=== PATIENT | female | born 1985 | race Caucasian/White ===

== ENCOUNTER 2021-01-23 19:41 | Emergency (ER) | payer OTHER ==
[2021-01-23] MEDS ORDERED: Sodium Chloride 0.9% 1,000 ML IV ONE (20:12)
[2021-01-23] MEDS ORDERED: Sodium Chloride 0.9% 10 ML Syringe FLUSH PRN (20:12)
[2021-01-23] MEDS ORDERED: Ondansetron 4 MG/2 ML SDV IVPUSH ONE (20:12)
--- NOTE | 2021-01-23 20:40 | EDM.PDOC ---
ED HPI GENERAL MEDICAL PROBLEM - General Chief Complaint: Gastrointestinal Problem Stated Complaint: FLU DEHYDRATED 27 WEEKS PREG Time Seen by Provider: 01/23/21 19:50 Source of Information: Reports: Patient History Limitations: Reports: No Limitations - History of Present Illness INITIAL COMMENTS - FREE TEXT/NARRATIVE: 35-year-old female presents the emergency department today complaints of nausea and vomiting and diarrhea. The patient is 27 weeks and has had a healthy up until today. She states that her son recently had the same symptoms that lasted approximately 24 hours. She states she woke this morning and felt nauseated and then has vomited numerous times throughout the day. She states she is also had several diarrhea stools. She denies any fever however she states she has had chills intermittently. She had initially taken Zofran this morning which did not seem to help. She then took a promethazine this afternoon which she states helped some however she has since vomited. She states she feels like she is becoming dehydrated and was requesting to have IV fluids. - Related Data Allergies Allergy/AdvReac Type Severity Reaction Status Date / Time Sulfa (Sulfonamide Allergy Anaphylactic Verified 01/23/21 19:52 Antibiotics) Shock Home Meds: Home Meds Aspirin [Aspirin EC] 81 mg PO DAILY 01/23/21 [History] Cholecalciferol (Vitamin D3) [Vitamin D3] 0 unit PO DAILY 01/23/21 [History] Montelukast [Singulair] 10 mg PO DAILY 01/23/21 [History] Ondansetron [Zofran] 4 mg PO Q6H PRN 01/23/21 [History] No122/Iron/Folic Acid [ Multi Tablet] 1 tab PO DAILY 01/23/21 [History] Promethazine [Phenergan] 25 mg PO Q6H PRN 01/23/21 [History] Past Medical History Other Cardiovascular History: THFR factor 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 MCKAY History: Reports: 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, Other COBBLER MCKAY History: c section 2019 Psychiatric History: Reports: Anxiety, Depression Endocrine/Metabolic History: Reports: Obesity/BMI 30+ - Infectious Disease History Infectious Disease History: Reports: Chicken Pox, Influenza, Novel Coronavirus - Past Surgical History HEENT Surgical History: Reports: Adenoidectomy, Tonsillectomy Other HEENT Surgeries/Procedures: nose surgery 2010 Social & Family History - Tobacco Use Tobacco Use Status *Q: Never Tobacco User Second Hand Smoke Exposure: No - Caffeine Use Caffeine Use: Reports: Coffee, Tea - Recreational Drug Use Recreational Drug Use: No ED ROS GENERAL - Review of Systems Review Of Systems: Comprehensive ROS is negative, except as noted in HPI. ED EXAM, GI/ABD - Physical Exam Exam: See Below Exam Limited By: No Limitations General Appearance: Alert, WD/WN, No Apparent Distress Ears: Normal External Exam, Hearing Grossly Normal Nose: Normal Inspection Throat/Mouth: Normal Inspection, Normal Lips, Normal Voice, No Airway Compromise Head: Atraumatic, Normocephalic Neck: Normal Inspection, Supple, Non-Tender, Full Range of Motion Respiratory/Chest: No Respiratory Distress, Lungs Clear, Normal Breath Sounds, No Accessory Muscle Use Cardiovascular: Normal Peripheral Pulses, Regular Rate, Rhythm, No Edema, No Murmur GI/Abdominal Exam: Normal Bowel Sounds, Non-Tender (Female) Exam: Deferred Rectal (Female) Exam: Deferred Back Exam: Normal Inspection, Full Range of Motion Extremities: Normal Inspection, Normal Range of Motion, Non-Tender, No Pedal Edema, Normal Capillary Refill Neurological: Alert, Oriented, Normal Cognition Psychiatric: Normal Affect, Normal Mood Skin Exam: Warm, Dry, Intact, Normal Color, No Rash Lymphatic: No Adenopathy Course - Vital Signs Text/Narrative:: 35-year-old female who is 27 weeks presents to the emergency department with complaints of nausea, vomiting and diarrhea. She states this started this morning just shortly after she woke up. She states that her son recently had similar symptoms that lasted approximately 24 hours. She has vomited between 10 and 12 times throughout the day and states that it is bile colored. She is also having several diarrheal stools today. She has tried to take Zofran and promethazine throughout the day however this is not helped. She does however state that she is still having a significant amount of movement. She is requesting to have IV fluids as she feels like she is becoming dehydrated. I have ordered her to receive a liter of normal saline, Zofran for the nausea and I have ordered labs on this patient. Last Recorded V/S: Last Vital Signs Temp 97.9 F 01/23/21 19:48 Pulse 98 01/23/21 19:48 Resp 12 01/23/21 19:48 BP 106/65 01/23/21 19:48 Pulse Ox 97 01/23/21 19:48 - Orders/Labs/Meds Orders: Active Orders 24 hr Category Date Time Status Potassium Chloride [Klor-Con M20] Med 01/23/21 21:41 Once 40 meq PO ONETIME ONE Sodium Chloride 0.9% [Saline Flush] Med 01/23/21 20:12 Active 10 ml FLUSH ASDIRECTED PRN Saline Lock Insert [OM.PC] Stat Oth 01/23/21 20:12 Ordered Medication Orders Sodium Chloride (Sodium Chloride 0.9% 10 Ml Syringe) 10 ml FLUSH ASDIRECTED PRN PRN Reason: Keep Vein Open Last Admin: 01/23/21 20:35 Dose: 10 ml Documented by: YOGESH Labs: Laboratory Tests 01/23/21 01/23/21 Range/Units 20:24 20:24 WBC 12.75 H (3.98-10.04) K/mm3 RBC 4.09 (3.98-5.22) M/mm3 Hgb 12.4 (11.2-15.7) gm/dl Hct 37.5 (34.1-44.9) % MCV 91.7 (79.4-94.8) fl MCH 30.3 (25.6-32.2) pg MCHC 33.1 (32.2-35.5) g/dl RDW Std Deviation 43.0 (36.4-46.3) fL Plt Count 267 (182-369) K/mm3 MPV 11.3 (9.4-12.3) fl Neut % (Auto) 87.2 H (34.0-71.1) % Lymph % (Auto) 6.4 L (19.3-51.7) % Taliaferro % (Auto) 5.6 (4.7-12.5) % Eos % (Auto) 0 L (0.7-5.8) Baso % (Auto) 0.2 (0.1-1.2) % Neut # (Auto) 11.12 H (1.56-6.13) K/mm3 Lymph # (Auto) 0.82 L (1.18-3.74) K/mm3 Taliaferro # (Auto) 0.71 H (0.24-0.36) K/mm3 Eos # (Auto) 0.00 L (0.04-0.36) K/mm3 Baso # (Auto) 0.02 (0.01-0.08) K/mm3 Manual Slide Review Abnormal smear Sodium 138 (136-145) mEq/L Potassium 3.2 L (3.5-5.1) mEq/L Chloride 103 (98-107) mEq/L Carbon Dioxide 20 L (21-32) mEq/L Anion Gap 18.2 H (5-15) BUN 7 (7-18) mg/dL Creatinine 0.7 (0.55-1.02) mg/dL Est Cr Clr Drug Dosing 105.01 mL/min Estimated GFR (MDRD) > 60 (>60) mL/min BUN/Creatinine Ratio 10.0 L (14-18) Glucose 97 (74-106) mg/dL Calcium 8.4 L (8.5-10.1) mg/dL Magnesium 2.2 (1.8-2.4) mg/dl Total Bilirubin 0.5 (0.2-1.0) mg/dL AST 18 (15-37) U/L ALT 14 (14-59) U/L Alkaline Phosphatase 114 (46-116) U/L Total Protein 6.7 (6.4-8.2) g/dl Albumin 2.4 L (3.4-5.0) g/dl Globulin 4.3 gm/dL Albumin/Globulin Ratio 0.6 L (1-2) Meds: Medications Generic Name Dose Route Start Last Admin Trade Name Natty PRN Reason Stop Dose Admin Sodium Chloride 10 ml 01/23/21 20:12 01/23/21 20:35 Sodium Chloride 0.9% 10 Ml Syringe FLUSH 10 ml ASDIRECTED PRN Administration Keep Vein Open Discontinued Medications Generic Name Dose Route Start Last Admin Trade Name Frered PRN Reason Stop Dose Admin Sodium Chloride 1,000 mls @ 999 mls/hr 01/23/21 20:12 01/23/21 20:26 Normal Saline IV 01/23/21 21:12 999 mls/hr ONETIME ONE Administration Ondansetron HCl 4 mg 01/23/21 20:12 01/23/21 20:26 Ondansetron 4 Mg/2 Ml Sdv IVPUSH 01/23/21 20:13 4 mg ONETIME ONE Administration - Re-Assessments/Exams Free Text/Narrative Re-Assessment/Exam: 01/23/21 21:41 Patient reports feeling much better after receiving a liter of IV fluids and Zofran. She states she is no longer nauseated. 01/23/21 21:42 Hematology reveals a WBC of 12.75, hemoglobin 12.4, hematocrit 37.5, chemistry reveals a sodium of 138, potassium 3.2, carbon dioxide 20, anion gap 18.2, BUN 7, creatinine 0.7, glucose 97, calcium 8.4, magnesium 2.2 I have ordered for the patient to receive 40 mEq of potassium p.o. x1 dose. She will then be discharged to home. Recommend that she take work off tomorrow to get some extra rest. Departure - Departure Time of Disposition: 21:43 Disposition: Home, Self-Care 01 Condition: Good Clinical Impression: Vomiting, Diarrhea - Discharge Information Instructions: Nausea and Vomiting, Adult, [id number] Referrals: Katy Abdi MD [Primary Care Provider] - Forms: ED Department Discharge Additional Instructions: You were seen in the emergency department today with complaints of nausea, vomiting, and diarrhea that started this morning. Labs were completed and you were given a liter of IV fluid and IV Zofran. Your labs were essentially unremarkable however did they did show you were slightly dehydrated and your potassium level was low. This is likely due to the vomiting and diarrhea. You were given a dose of potassium oral. Recommend that you go home and rest. Drink plenty of fluids such as Gatorade which has electrolytes and potassium in it. Recommend clear liquids for the next 24 hours may advance to a bland diet after that. Follow-up with your COBBLER MCKAY as scheduled. Should your condition worsen or change, do not hesitate returning to the emergency department. Sepsis Event Note (ED) - Evaluation Sepsis Screening Result: No Definite Risk - Focused Exam Vital Signs: Vital Signs Temp Pulse Resp BP Pulse Ox 01/23/21 19:48 97.9 F 98 12 106/65 97 - My Orders Last 24 Hours: My Active Orders 01/23/21 20:12 Sodium Chloride 0.9% [Saline Flush] 10 ml FLUSH ASDIRECTED PRN Saline Lock Insert [OM.PC] Stat 01/23/21 21:41 Potassium Chloride [Klor-Con M20] 40 meq PO ONETIME ONE - Assessment/Plan Last 24 Hours: My Active Orders 01/23/21 20:12 Sodium Chloride 0.9% [Saline Flush] 10 ml FLUSH ASDIRECTED PRN Saline Lock Insert [OM.PC] Stat 01/23/21 21:41 Potassium Chloride [Klor-Con M20] 40 meq PO ONETIME ONE
[2021-01-23] MEDS ORDERED: Potassium Chloride 20 MEQ Tab.ER PO ONE (21:41)
== END 2021-01-23 21:51 | disposition home or self-care (01) ==
LOC: JD.ED 19:41
DX: O21.2 Late vomiting of pregnancy (principal); O99.891 Other specified diseases and conditions complicating pregnancy; R19.7 Diarrhea, unspecified; O09.522 Supervision of elderly multigravida, second trimester; O99.212 Obesity complicating pregnancy, second trimester; E66.9 Obesity, unspecified; Z88.2 Allergy status to sulfonamides; Z3A.27 27 weeks gestation of pregnancy; Z79.82 Long term (current) use of aspirin
CPT/HCPCS: 36415; 80053; 83735; 85025; 96374; 99284; A9270; J2405; J7030

== ENCOUNTER 2021-04-13 08:50 | Inpatient (IN) | payer OTHER ==
[2021-04-13] MEDS ORDERED: Oxytocin/Lactated Ringers 10 UNIT/1,000 ML BAG IV SCH (09:45)
[2021-04-13] MEDS ORDERED: Citric Acid/Sodium Citrate Solution 30 ML Cup PO ONE (09:45)
[2021-04-13] MEDS ORDERED: Metoclopramide 10 MG/2 ML SDV IVPUSH ONE (09:45)
[2021-04-13] MEDS ORDERED: Sodium Chloride 0.9% 10 ML Syringe FLUSH PRN (09:45)
[2021-04-13] MEDS ORDERED: ceFAZolin 2 GM in Premix Bag 1 BAG IV ONE (09:45)
[2021-04-13] MEDS ORDERED: ceFAZolin 1 GM Vial ONE (09:52)
[2021-04-13] MEDS ORDERED: Ondansetron 4 MG/2 ML SDV ONE (09:52)
[2021-04-13] MEDS ORDERED: Oxytocin 10 Units/1 ML SDV ONE ×2 (09:52→11:24)
[2021-04-13] MEDS ORDERED: Ketorolac 30 MG/ML SDV ONE (09:52)
[2021-04-13] MEDS ORDERED: Morphine PF 10 MG/10 ML SDV ONE (09:53)
--- NOTE | 2021-04-13 09:57 | PCM.LDHP ---
L&D History of Present Illness - General Date of Service: 04/13/21 Admit Problem/Dx: Patient Status Order with Admit Dx/Problem 04/13/21 09:00 Patient Status [ADT] Routine 04/13/21 09:45 Patient Status [ADT] Routine Admission Diagnosis/Problem Admission Diagnosis/Problem Source of Information: Patient History Limitations: Reports: No Limitations - History of Present Illness Introduction:: Patient is a 36 y/o at 38 3/7 wks who presents to L&D for concerns of decreased FM. Had decreased FM on Sunday at time of her NST. Was reactive. Since then continues to have less FM. Otherwise continues to have worsening discomfort in her left leg. Edema more notable. 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: 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, , Spontaneous : 3 Para: 1 LMP (Approximate): Psychiatric History: Reports: Anxiety, Depression Endocrine/Metabolic History: Reports: Obesity/BMI 30+ - Infectious Disease History Infectious Disease History: Reports: Chicken Pox, Influenza, Novel Coronavirus - Past Surgical History HEENT Surgical History: Reports: Adenoidectomy, Tonsillectomy Other HEENT Surgeries/Procedures: Nasal surgery Female Surgical History: Reports: Section, Other (See Below) (Diagnostic laparoscopy) Social & Family History - Tobacco Use Tobacco Use Status *Q: Never Tobacco User - Caffeine Use Caffeine Use: Reports: Coffee, Tea - Alcohol Use Alcohol Use History: No - Recreational Drug Use Recreational Drug Use: No H&P Review of Systems - Review of Systems: Review Of Systems: See Below General: Reports: No Symptoms Pulmonary: Reports: No Symptoms Cardiovascular: Reports: No Symptoms Gastrointestinal: Reports: No Symptoms Genitourinary: Reports: No Symptoms Musculoskeletal: Reports: Leg Pain Psychiatric: Reports: No Symptoms Neurological: Reports: No Symptoms L&D Exam - Exam Exam: See Below - Vital Signs Weight: 103.419 kg - OB Specific Contraction Intensity: Irritability Movement: Active Heart Tones: Present Heart Tones per Min: 135 Heart Rate (FHR) Variability: Moderate (6-25 bmp) - Exam General: Alert, Oriented, Cooperative Lungs: Clear to Auscultation, Normal Respiratory Effort Cardiovascular: Regular Rate, Regular Rhythm GI/Abdominal Exam: Soft, Non-Tender Extremities: Other (Left leg markedly edematous from foot up through thigh. Slightly warm today. Moderately tender ) - Problem List (1) 38 weeks gestation of SNOMED Code(s): 01705584 ICD Code: Z3A.38 - 38 WEEKS GESTATION OF Status: Acute Current Visit: Yes (2) History of delivery SNOMED Code(s): 766854865 ICD Code: Z98.891 - HISTORY OF UTERINE SCAR FROM PREVIOUS SURGERY Status: Acute Current Visit: Yes (3) Edema leg SNOMED Code(s): 449510288 ICD Code: R60.0 - LOCALIZED EDEMA Status: Acute Current Visit: Yes (4) Decreased movement SNOMED Code(s): 707733639 ICD Code: O36.8190 - DECREASED MOVEMENTS, UNSP TRIMESTER, UNSP Status: Acute Current Visit: Yes Qualifiers: Fetus number: single or unspecified fetus Trimester: third trimester Qualified Code(s): O36.8130 - Decreased movements, third trimester, not applicable or unspecified (5) Gestational diabetes SNOMED Code(s): 30426863 ICD Code: O24.419 - GESTATIONAL DIABETES MELLITUS IN , UNSP CONTROL Status: Acute Current Visit: Yes Qualifiers: Gestational diabetes mellitus control: insulin-controlled Trimester: third trimester Qualified Code(s): O24.414 - Gestational diabetes mellitus in , insulin controlled Problem List Initiated/Reviewed/Updated: Yes Orders Last 24hrs: Active Orders 24 hr Category Date Time Status Patient Status [ADT] Routine ADT 04/13/21 09:00 Active Patient Status [ADT] Routine ADT 04/13/21 09:45 Ordered Communication Order [RC] ROUTINE Care 04/13/21 09:45 Ordered Heart Tones [RC] PER UNIT ROUTINE Care 04/13/21 09:45 Ordered Non Stress Test [RC] PER UNIT ROUTINE Care 04/13/21 09:00 Active Peripheral IV Care [RC] . DIRECTED Care 04/13/21 09:46 Ordered Procedure Site Prep Instruct [RC] ASDIRECTED Care 04/13/21 09:45 Ordered Verify Patient Consent Obtain [RC] PER UNIT ROUTINE Care 04/13/21 09:45 Ordered Vital Signs [RC] PER UNIT ROUTINE Care 04/13/21 09:00 Active Vital Signs [RC] PFP Care 04/13/21 09:45 Ordered CBC WITH AUTO DIFF [HEME] Stat Lab 04/13/21 09:45 Ordered CORONAVIRUS COVID-19 TRICIA [MOLEC] Stat Lab 04/13/21 09:47 Ordered RAPID PLASMA REAGIN,RPR [CHEM] Routine Lab 04/13/21 09:45 Ordered TYPE AND SCREEN [BBK] Routine Lab 04/13/21 09:45 Ordered Citric Acid/Sodium Citrate [Bicitra Solution] Med 04/13/21 09:45 Once 30 ml PO ONETIME ONE Lactated Ringers @ 125 MLS/HR(1000ml) Med 04/13/21 09:45 Ordered Lactated Ringers [Ringers, Lactated] 1,000 ml IV ASDIRECTED Metoclopramide [Reglan] Med 04/13/21 09:45 Once 10 mg IVPUSH ONETIME ONE Oxytocin/Lactated Ringers [Pitocin in LR 10 Units/1,000 Med 04/13/21 09:45 Ordered ML] 10 unit in 1,000 ml IV ASDIRECTED Sodium Chloride 0.9% [Saline Flush] Med 04/13/21 09:45 Ordered 10 ml FLUSH ASDIRECTED PRN ceFAZolin [Ancef 2 GM/50 ML] 2 gm Med 04/13/21 09:45 Ordered Premix Bag 1 bag IV ONETIME Peripheral IV Insertion Adult [OM.PC] Routine Oth 04/13/21 09:45 Ordered Schedule Procedure [COMM] Per Unit Routine Oth 04/13/21 09:45 Ordered Resuscitation Status Routine Resus Stat 04/13/21 09:00 Ordered Medication Orders Citric Acid/Sodium Citrate (Citric Acid/Sodium Citrate Solution 30 Ml Cup) 30 ml PO ONETIME ONE Stop: 04/13/21 09:46 Lactated Ringer's (Ringers, Lactated) 1,000 mls @ 125 mls/hr IV ASDIRECTED EDUARDO Cefazolin Sodium/Dextrose 2 gm (/ Premix) 50 mls @ 100 mls/hr IV ONETIME ONE Stop: 04/13/21 10:14 Oxytocin/Lactated Ringer's (Pitocin In Lr 10 Units/1,000 Ml) 10 unit in 1,000 mls @ 100 mls/hr IV ASDIRECTED EDUARDO; Protocol Metoclopramide HCl (Metoclopramide 10 Mg/2 Ml Sdv) 10 mg IVPUSH ONETIME ONE Stop: 04/13/21 09:46 Sodium Chloride (Sodium Chloride 0.9% 10 Ml Syringe) 10 ml FLUSH ASDIRECTED PRN PRN Reason: Keep Vein Open Assessment/Plan Comment:: Patient with persistent concerns of decreased FM over the last several days. While NST appropriate given risk factor of GODMA2 will proceed with delivery. This will be via repeat . Labs ordered. Garrick TINOCO. Peds/anesthesia aware. Lower leg edema. Has had two duplex scans in last 1.5 weeks. Depending upon how looks after delivery may either do another duplex vs MRI/additional imaging to ensure no other deeper pathology.
[2021-04-13] MEDS: Lactated Ringers 1,000 ML IV SCH ×2 (09:59→10:45)
--- NOTE | 2021-04-13 10:17 | PCM.PREANE ---
Preanesthetic Assessment - Procedure Proposed Procedure: - Anesthesia/Transfusion/Family Hx Anesthesia History: Prior Anesthesia Without Reaction Family History of Anesthesia Reaction: No Transfusion History: No Prior Transfusion(s) Intubation History: Unknown - Review of Systems General: No Symptoms Pulmonary: No Symptoms Cardiovascular: No Symptoms Gastrointestinal: Abdominal Pain (uterine contractions) Neurological: Tingling (left middle tip of finger) Other: Reports: Diabetes, Depression, Anxiety - Physical Assessment NPO Status Date: 04/13/21 NPO Status Time: 08:00 Height: 1.68 m Weight: 103.419 kg ASA Class: 2 Mental Status: Alert & Oriented x3 Airway Class: Mallampati = 1 Dentition: Reports: Normal Dentition Thyro-Mental Finger Breadths: 3 Mouth Opening Finger Breadths: 3 ROM/Head Extension: Full Lungs: Clear to Auscultation, Normal Respiratory Effort Cardiovascular: Regular Rate, Regular Rhythm - Allergies Allergies/Adverse Reactions: Allergies Allergy/AdvReac Type Severity Reaction Status Date / Time Sulfa (Sulfonamide Allergy Anaphylactic Verified 04/13/21 09:00 Antibiotics) Shock - Blood Blood Available: Yes Product(s) Available: PRBC - Anesthesia Plan Pre-Op Medication Ordered: Antacids (Bicitra and reglan) - Acknowledgements Anesthesia Type Planned: General Anesthesia Pt an Appropriate Candidate for the Planned Anesthesia: Yes Alternatives and Risks of Anesthesia Discussed w Pt/Guardian: Yes Pt/Guardian Understands and Agrees with Anesthesia Plan: Yes PreAnesthesia Questionnaire Gastrointestinal History: Reports: GERD Genitourinary History: Reports: Pyelonephritis 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, , Spontaneous Other OB/BYN History: history of female infertility Psychiatric History: Reports: Anxiety, Depression Endocrine/Metabolic History: Reports: Diabetes, Gestational, Obesity/BMI 30+ Hematologic History: Reports: Other (See Below) Other Hematologic History: Patient stated that she has been told that she is high risk for blood clots Other Dermatologic History: left leg redness - Infectious Disease History Infectious Disease History: Reports: Chicken Pox, Influenza, Novel Coronavirus - Past Surgical History HEENT Surgical History: Reports: Adenoidectomy, Myringotomy w Tube(s), Oral Surgery, Tonsillectomy Other HEENT Surgeries/Procedures: Nasal surgery; wisdom Female Surgical History: Reports: Section, Other (See Below) (Diagnostic laparoscopy; surgery egg retrivial) - SUBSTANCE USE Tobacco Use Status *Q: Never Tobacco User Second Hand Smoke Exposure: No Days Per Week of Alcohol Use: 0 Number of Drinks Per Day: 0 Total Drinks Per Week: 0 Recreational Drug Use History: No - HOME MEDS Home Medications: Home Meds Aspirin [Aspirin EC] 81 mg PO DAILY 01/23/21 [History] Cholecalciferol (Vitamin D3) [Vitamin D3] 1,000 unit PO DAILY 01/23/21 [History] Montelukast [Singulair] 10 mg PO DAILY 01/23/21 [History] No122/Iron/Folic Acid [ Multi Tablet] 1 tab PO DAILY 01/23/21 [History] cephALEXin [Keflex] 500 mg PO Q6H #20 cap 04/03/21 [Rx] Ferrous Sulfate [Iron] 325 mg PO DAILY 04/13/21 [History] Omeprazole Magnesium [Prilosec Otc] 20 mg PO DAILY 04/13/21 [History] - CURRENT (IN HOUSE) MEDS Current Meds: Current Medications Lactated Ringer's (Ringers, Lactated) 1,000 mls @ 125 mls/hr IV ASDIRECTED EDUARDO Last Admin: 04/13/21 09:59 Dose: 999 mls/hr Documented by: Cefazolin Sodium/Dextrose 2 gm (/ Premix) 50 mls @ 100 mls/hr IV ONETIME ONE Stop: 04/13/21 10:14 Oxytocin/Lactated Ringer's (Pitocin In Lr 10 Units/1,000 Ml) 10 unit in 1,000 mls @ 100 mls/hr IV ASDIRECTED EDUARDO; Protocol Sodium Chloride (Sodium Chloride 0.9% 10 Ml Syringe) 10 ml FLUSH ASDIRECTED PRN PRN Reason: Keep Vein Open Discontinued Medications Cefazolin Sodium (Cefazolin 1 Gm Vial) Confirm Administered Dose 2 gm .ROUTE .STK-MED ONE Stop: 04/13/21 09:53 Citric Acid/Sodium Citrate (Citric Acid/Sodium Citrate Solution 30 Ml Cup) 30 ml PO ONETIME ONE Stop: 04/13/21 09:46 Last Admin: 04/13/21 09:59 Dose: 30 ml Documented by: Ketorolac Tromethamine (Ketorolac 30 Mg/Ml Sdv) Confirm Administered Dose 30 mg .ROUTE .STK-MED ONE Stop: 04/13/21 09:53 Metoclopramide HCl (Metoclopramide 10 Mg/2 Ml Sdv) 10 mg IVPUSH ONETIME ONE Stop: 04/13/21 09:46 Last Admin: 04/13/21 09:59 Dose: 10 mg Documented by: Morphine Sulfate (Morphine Pf 10 Mg/10 Ml Sdv) Confirm Administered Dose 10 mg .ROUTE .STK-MED ONE Stop: 04/13/21 09:54 Ondansetron HCl (Ondansetron 4 Mg/2 Ml Sdv) Confirm Administered Dose 4 mg .ROUTE .STK-MED ONE Stop: 04/13/21 09:53 Oxytocin (Oxytocin 10 Units/1 Ml Sdv) Confirm Administered Dose 10 unit .ROUTE .STK-MED ONE Stop: 04/13/21 09:53
[2021-04-13] MEDS ORDERED: Propofol 200 MG/20 ML SDV ONE (10:46)
[2021-04-13] MEDS ORDERED: Succinylcholine/Sod PF 100 MG/5 ML SYRINGE IV ONE (10:59)
[2021-04-13] MEDS ORDERED: fentaNYL 250 MCG/5 ML SDV ONE (11:15)
[2021-04-13] MEDS ORDERED: Methylergonovine 0.2 MG/1 ML Amp ONE (11:18)
[2021-04-13] MEDS ORDERED: Carboprost Tromethamine 250 MCG/1 ML Amp ONE (11:20)
[2021-04-13] MEDS ORDERED: HYDROmorphone 0.5 MG/0.5 ML Syringe ONE (11:32)
[2021-04-13] MEDS ORDERED: fentaNYL 100 MCG/2 ML SDV ONE (11:37)
--- NOTE | 2021-04-13 11:56 | PCM.OPNOTE ---
- General Post-Op/Procedure Note Date of Surgery/Procedure: 04/13/21 Operative Procedure(s): Repeat Findings: Moderate scar tissue between rectus and fascia. Minimal adhesive disease between bladder and lower uterine segment. Baby Girl in vertex presentation. Weight of 8 lbs 12 oz. APGARS fo 6 & 8. Normal appearance of uterus, fallopian tubes, and ovaries Pre Op Diagnosis: 38 3/7 wks. Persistent decreased FM. GODMA2 Post-Op Diagnosis: Same Anesthesia Technique: General ET Tube Primary Surgeon: Hillary Flynn Secondary Surgeon: Katy Abdi Anesthesia Provider: Camille Adan Reason Manager Transportation Planning Was Necessary: BMI of 36. General anesthetic. Speed/safety of procedure Pathology: Cord blood collected. Placenta discarded Fluid Replacement, Intraop: 2,700 Output, Urine Amount: 50 EBL in mLs: 1,200 Complications: None Condition: Good Free Text/Narrative:: The risks, benefits, indications, potential complications, and alternatives were explained to the patient and informed consent obtained. After induction of anesthesia, the patient was placed in a supine position and then draped and prepped in the usual sterile manner. A Pfannenstiel incision was made and carried down through the subcutaneous tissue to the fascia. Fascial incision was made and extended transversely. The fascia was from the underlying rectus tissue superiorly and inferiorly. The peritoneum was identified and entered. Peritoneal incision was extended longitudinally. The utero-vesical peritoneal reflection was incised transversely and the bladder flap was bluntly freed from the lower uterine segment. A low transverse uterine incision was made sharply with a scalpel and extended bluntly in a cephalocaudad direction. A baby girl was delivered from a vertex presentation with APGARS as above. After the umbilical cord was clamped and cut cord blood was obtained for evaluation. The placenta was removed intact and appeared normal. The uterus was exteriorized and cleared of clots. The uterine outline, tubes and ovaries appeared normal. The uterine incision was closed with running locked sutures of 0 Vicryl. Hemostasis was obtained with a second imbricating layer of 0 Vicryl. Poor uterine tone noted and patient given 0.2 mg of IM Methergine and 250 mcg of IM Hemabate. Tone improved. The uterus was then placed back into the abdomen. The infracolic gutters were cleared of blood clots. The fascia was then reapproximated with running sutures of 0 Vicryl. The subcutaneous tissue was irrigated with sterile warm normal saline, hemostasis obtained with cautery. This layer was closed with a running 0 Vicryl suture. The skin was reapproximated with running Subcuticular 4-0 Monocryl sutures. Instrument, sponge, and needle counts were correct prior the abdominal closure and at the conclusion of the case.
[2021-04-13] MEDS ORDERED: diphenhydrAMINE 50 MG/ML SDV IVPUSH PRN ×2 (12:03→13:12)
[2021-04-13] MEDS ORDERED: Meperidine 50 MG/ML Vial IVPUSH PRN (12:03)
[2021-04-13] MEDS ORDERED: Ondansetron 4 MG/2 ML SDV IVPUSH PRN (12:03)
[2021-04-13] MEDS: fentaNYL 100 MCG/2 ML SDV IVPUSH PRN ×3 (12:11→12:42)
[2021-04-13] MEDS ORDERED: Dextrose 5%-Lactated Ringers 1,000 ML IV SCH (13:12)
[2021-04-13] MEDS ORDERED: Naloxone 0.4 MG/ML SDV IVPUSH PRN (13:12)
[2021-04-13] MEDS ORDERED: Acetaminophen/oxyCODONE 325-5 MG Tab PO PRN (13:12)
[2021-04-13] MEDS ORDERED: ePHEDrine 50 MG/ML SDV IVPUSH PRN (13:12)
[2021-04-13] MEDS ORDERED: Lactated Ringers 1,000 ML ONE (13:15)
[2021-04-13] MEDS: Acetaminophen/oxyCODONE 325-5 MG Tab PO PRN ×2 (13:44→20:59)
--- NOTE | 2021-04-13 13:57 | PCM.POSTAN ---
POST ANESTHESIA ASSESSMENT - MENTAL STATUS Mental Status: Alert, Oriented - VITAL SIGNS Vital Signs: Last Vital Signs Temp 98.3 F 04/13/21 13:07 Pulse 89 04/13/21 13:07 Resp 14 04/13/21 13:07 BP 125/76 04/13/21 13:07 Pulse Ox 100 04/13/21 13:07 Vitals when dropped off in PACU at 1153: 112/84 HR 91 RR 14 100 RA 97.3 - RESPIRATORY Respiratory Status: Respiratory Rate WNL, Airway Patent, O2 Saturation Stable - CARDIOVASCULAR CV Status: Pulse Rate WNL, Blood Pressure Stable - GASTROINTESTINAL GI Status: No Symptoms - PAIN Pain Score: 4 - POST OP HYDRATION Hydration Status: Adequate & Stable (Pupils equal and reactive. Patient denies chest pain, SOB, or pain in lungs. Pain in left leg is the same as pre- operatively. No signs or symptoms of a WA, PE, or additional blood clots in legs. )
[2021-04-13] MEDS: Ketorolac 30 MG/ML SDV IVPUSH SCH (17:55)
--- NOTE | 2021-04-13 18:44 | US ---
Left lower extremity deep venous ultrasound: Duplex and color Doppler evaluation was obtained of the left common femoral, proximal greater saphenous, superficial femoral, popliteal, posterior tibial and peroneal veins. Right common femoral vein was also evaluated. Iliac vessels were also evaluated. Comparison: Prior bilateral lower extremity deep venous ultrasound of 04/03/21. Findings: Normal phasic flow, augmentation and compression is seen. Impression: 1. No findings of deep venous thrombosis within the left lower extremity or within the right common femoral vein. Visualized iliac veins appear without thrombus. Diagnostic code #1
[2021-04-13] MEDS: Lactated Ringers 500 ML IV ONE (22:24)
[2021-04-14] MEDS: Ketorolac 30 MG/ML SDV IVPUSH SCH ×2 (01:46→08:17)
[2021-04-14] MEDS: Acetaminophen/oxyCODONE 325-5 MG Tab PO PRN ×4 (04:59→21:02)
[2021-04-14] MEDS ORDERED: Lactated Ringers 500 ML IV ONE (06:10)
[2021-04-14] MEDS: Lactated Ringers 500 ML IV ONE (06:17)
--- NOTE | 2021-04-14 06:44 | PCM.PNPP ---
- General Info Date of Service: 04/14/21 Functional Status: Reports: Pain Controlled, Tolerating Diet, Ambulating - Review of Systems General: Reports: No Symptoms Pulmonary: Reports: No Symptoms Cardiovascular: Reports: No Symptoms Gastrointestinal: Reports: Abdominal Pain Genitourinary: Reports: No Symptoms Musculoskeletal: Reports: No Symptoms Systems Review Comment:: leg pain and edema improving - Patient Data Vital Signs - Most Recent: Last Vital Signs Temp 36.8 C 04/13/21 13:07 Pulse 75 04/14/21 02:01 Resp 14 04/13/21 13:07 BP 100/67 04/14/21 02:01 Pulse Ox 97 04/14/21 02:01 Weight - Most Recent: 103.419 kg I&O - Last 24 Hours: Intake & Output 04/13/21 04/13/21 04/14/21 14:59 22:59 06:59 Intake Total 4900 1120 Output Total 150 400 175 Balance 4750 720 -175 Lab Results - Last 24 Hours: Laboratory Results - last 24 hr 04/13/21 04/13/21 04/13/21 Range/Units 09:30 09:45 09:45 WBC (3.98-10.04) K/mm3 RBC (3.98-5.22) M/mm3 Hgb (11.2-15.7) gm/dl Hct (34.1-44.9) % MCV (79.4-94.8) fl MCH (25.6-32.2) pg MCHC (32.2-35.5) g/dl RDW Std Deviation (36.4-46.3) fL Plt Count (182-369) K/mm3 MPV (9.4-12.3) fl Neut % (Auto) (34.0-71.1) % Lymph % (Auto) (19.3-51.7) % [place] % (Auto) (4.7-12.5) % Eos % (Auto) (0.7-5.8) Baso % (Auto) (0.1-1.2) % Neut # (Auto) (1.56-6.13) K/mm3 Lymph # (Auto) (1.18-3.74) K/mm3 [place] # (Auto) (0.24-0.36) K/mm3 Eos # (Auto) (0.04-0.36) K/mm3 Baso # (Auto) (0.01-0.08) K/mm3 Manual Slide Review Sodium (136-145) mEq/L Potassium (3.5-5.1) mEq/L Chloride (98-107) mEq/L Carbon Dioxide (21-32) mEq/L Anion Gap (5-15) BUN (7-18) mg/dL Creatinine (0.55-1.02) mg/dL Est Cr Clr Drug Dosing mL/min Estimated GFR (MDRD) (>60) mL/min BUN/Creatinine Ratio (14-18) Glucose (70-99) mg/dL POC Glucose (70-99) mg/dL Calcium (8.5-10.1) mg/dL RPR Non-reactive (NONREACTIVE) SARS-CoV-2 RNA (TRICIA) Negative (NEGATIVE) Blood Type A NEGATIVE Gel Antibody Screen Negative 04/13/21 04/14/21 04/14/21 Range/Units 09:45 05:11 05:11 WBC 11.90 H 15.04 H (3.98-10.04) K/mm3 RBC 4.24 3.83 L (3.98-5.22) M/mm3 Hgb 12.3 11.2 (11.2-15.7) gm/dl Hct 38.9 35.5 (34.1-44.9) % MCV 91.7 92.7 (79.4-94.8) fl MCH 29.0 29.2 (25.6-32.2) pg MCHC 31.6 L 31.5 L (32.2-35.5) g/dl RDW Std Deviation 49.0 H 49.4 H (36.4-46.3) fL Plt Count 285 247 (182-369) K/mm3 MPV 12.1 12.3 (9.4-12.3) fl Neut % (Auto) 75.9 H (34.0-71.1) % Lymph % (Auto) 13.9 L (19.3-51.7) % [place] % (Auto) 6.3 (4.7-12.5) % Eos % (Auto) 1.5 (0.7-5.8) Baso % (Auto) 0.6 (0.1-1.2) % Neut # (Auto) 9.03 H (1.56-6.13) K/mm3 Lymph # (Auto) 1.66 (1.18-3.74) K/mm3 [place] # (Auto) 0.75 H (0.24-0.36) K/mm3 Eos # (Auto) 0.18 (0.04-0.36) K/mm3 Baso # (Auto) 0.07 (0.01-0.08) K/mm3 Manual Slide Review Normal smear Sodium 135 L (136-145) mEq/L Potassium 4.0 (3.5-5.1) mEq/L Chloride 104 (98-107) mEq/L Carbon Dioxide 23 (21-32) mEq/L Anion Gap 12.0 (5-15) BUN 8 (7-18) mg/dL Creatinine 0.6 (0.55-1.02) mg/dL Est Cr Clr Drug Dosing 121.35 mL/min Estimated GFR (MDRD) > 60 (>60) mL/min BUN/Creatinine Ratio 13.3 L (14-18) Glucose 84 (70-99) mg/dL POC Glucose (70-99) mg/dL Calcium 8.6 (8.5-10.1) mg/dL RPR (NONREACTIVE) SARS-CoV-2 RNA (TRICIA) (NEGATIVE) Blood Type Gel Antibody Screen 04/14/21 Range/Units 06:28 WBC (3.98-10.04) K/mm3 RBC (3.98-5.22) M/mm3 Hgb (11.2-15.7) gm/dl Hct (34.1-44.9) % MCV (79.4-94.8) fl MCH (25.6-32.2) pg MCHC (32.2-35.5) g/dl RDW Std Deviation (36.4-46.3) fL Plt Count (182-369) K/mm3 MPV (9.4-12.3) fl Neut % (Auto) (34.0-71.1) % Lymph % (Auto) (19.3-51.7) % [place] % (Auto) (4.7-12.5) % Eos % (Auto) (0.7-5.8) Baso % (Auto) (0.1-1.2) % Neut # (Auto) (1.56-6.13) K/mm3 Lymph # (Auto) (1.18-3.74) K/mm3 [place] # (Auto) (0.24-0.36) K/mm3 Eos # (Auto) (0.04-0.36) K/mm3 Baso # (Auto) (0.01-0.08) K/mm3 Manual Slide Review Sodium (136-145) mEq/L Potassium (3.5-5.1) mEq/L Chloride (98-107) mEq/L Carbon Dioxide (21-32) mEq/L Anion Gap (5-15) BUN (7-18) mg/dL Creatinine (0.55-1.02) mg/dL Est Cr Clr Drug Dosing mL/min Estimated GFR (MDRD) (>60) mL/min BUN/Creatinine Ratio (14-18) Glucose (70-99) mg/dL POC Glucose 77 (70-99) mg/dL Calcium (8.5-10.1) mg/dL RPR (NONREACTIVE) SARS-CoV-2 RNA (TRICIA) (NEGATIVE) Blood Type Gel Antibody Screen Med Orders - Current: Current Medications Diphenhydramine HCl (Diphenhydramine 50 Mg/Ml Sdv) 25 mg IVPUSH Q6H PRN PRN Reason: Pruritis Diphenhydramine HCl (Diphenhydramine 50 Mg/Ml Sdv) 25 mg IVPUSH Q6H PRN PRN Reason: Itching or Nausea Docusate Sodium (Docusate Sodium 100 Mg Cap) 100 mg PO Q12H PRN PRN Reason: Constipation Ephedrine Sulfate (Ephedrine 50 Mg/Ml Sdv) 5 mg IVPUSH SEECOMMENT PRN PRN Reason: Other Fentanyl (Fentanyl 100 Mcg/2 Ml Sdv) 50 mcg IVPUSH Q5M PRN PRN Reason: Pain Last Admin: 04/13/21 12:42 Dose: 50 mcg Documented by: Ibuprofen (Ibuprofen 600 Mg Tab) 600 mg PO Q6H PRN PRN Reason: mild pain or fever Meperidine HCl (Meperidine 50 Mg/Ml Vial) 25 mg IVPUSH ONETIME PRN PRN Reason: Shivering Naloxone HCl (Naloxone 0.4 Mg/Ml Sdv) 0.1 mg IVPUSH SEECOMMENT PRN PRN Reason: Respiratory Depression Ondansetron HCl (Ondansetron 4 Mg/2 Ml Sdv) 4 mg IVPUSH ONETIME PRN PRN Reason: Nausea/Vomiting Oxycodone/Acetaminophen (Acetaminophen/Oxycodone 325-5 Mg Tab) 1 tab PO Q4H PRN PRN Reason: Pain (moderate 4-6) Oxycodone/Acetaminophen (Acetaminophen/Oxycodone 325-5 Mg Tab) 2 tab PO Q4H PRN PRN Reason: Pain (severe 7-10) Last Admin: 04/14/21 04:59 Dose: 2 tab Documented by: Discontinued Medications Carboprost Tromethamine (Carboprost Tromethamine 250 Mcg/1 Ml Amp) Confirm Administered Dose 250 mcg .ROUTE .STK-MED ONE Stop: 04/13/21 11:21 Cefazolin Sodium (Cefazolin 1 Gm Vial) Confirm Administered Dose 2 gm .ROUTE .STK-MED ONE Stop: 04/13/21 09:53 Citric Acid/Sodium Citrate (Citric Acid/Sodium Citrate Solution 30 Ml Cup) 30 ml PO ONETIME ONE Stop: 04/13/21 09:46 Last Admin: 04/13/21 09:59 Dose: 30 ml Documented by: Fentanyl (Fentanyl 250 Mcg/5 Ml Sdv) Confirm Administered Dose 250 mcg .ROUTE .STK-MED ONE Stop: 04/13/21 11:16 Fentanyl (Fentanyl 100 Mcg/2 Ml Sdv) Confirm Administered Dose 100 mcg .ROUTE .STK-MED ONE Stop: 04/13/21 11:38 Hydromorphone HCl (Hydromorphone 0.5 Mg/0.5 Ml Syringe) Confirm Administered Dose 0.5 mg .ROUTE .STK-MED ONE Stop: 04/13/21 11:33 Lactated Ringer's (Ringers, Lactated) 1,000 mls @ 125 mls/hr IV ASDIRECTED [facility] Last Admin: 04/13/21 10:45 Dose: 999 mls/hr Documented by: Cefazolin Sodium/Dextrose 2 gm (/ Premix) 50 mls @ 100 mls/hr IV ONETIME ONE Stop: 04/13/21 10:14 Last Admin: 04/13/21 15:59 Dose: Not Given Documented by: Oxytocin/Lactated Ringer's (Pitocin In Lr 10 Units/1,000 Ml) 10 unit in 1,000 mls @ 100 mls/hr IV ASDIRECTED EDUARDO; Protocol Dextrose/Lactated Ringer's (Dextrose 5%-Lactated Ringers) 1,000 mls @ 125 mls/hr IV ASDIRECTED [facility] Stop: 04/13/21 21:11 Last Admin: 04/13/21 13:37 Dose: 125 mls/hr Documented by: Lactated Ringer's (Ringers, Lactated) Confirm Administered Dose 1,000 mls @ as directed .ROUTE .STK-MED ONE Stop: 04/13/21 13:16 Lactated Ringer's (Ringers, Lactated) 500 mls @ 999 mls/hr IV .BOLUS ONE Stop: 04/13/21 22:06 Last Admin: 04/14/21 06:17 Dose: 999 mls/hr Documented by: Lactated Ringer's (Ringers, Lactated) 500 mls @ 999 mls/hr IV .BOLUS ONE Stop: 04/14/21 06:40 Ketorolac Tromethamine (Ketorolac 30 Mg/Ml Sdv) Confirm Administered Dose 30 mg .ROUTE .STK-MED ONE Stop: 04/13/21 09:53 Ketorolac Tromethamine (Ketorolac 30 Mg/Ml Sdv) 30 mg IVPUSH Q6H [facility] Stop: 04/14/21 06:01 Last Admin: 04/14/21 01:46 Dose: 30 mg Documented by: Methylergonovine Maleate (Methylergonovine 0.2 Mg/1 Ml Amp) Confirm Administered Dose 0.2 mg .ROUTE .STK-MED ONE Stop: 04/13/21 11:19 Metoclopramide HCl (Metoclopramide 10 Mg/2 Ml Sdv) 10 mg IVPUSH ONETIME ONE Stop: 04/13/21 09:46 Last Admin: 04/13/21 09:59 Dose: 10 mg Documented by: Morphine Sulfate (Morphine Pf 10 Mg/10 Ml Sdv) Confirm Administered Dose 0 mg .ROUTE .STK-MED ONE Stop: 04/13/21 09:54 Ondansetron HCl (Ondansetron 4 Mg/2 Ml Sdv) Confirm Administered Dose 4 mg .ROUTE .STK-MED ONE Stop: 04/13/21 09:53 Oxytocin (Oxytocin 10 Units/1 Ml Sdv) Confirm Administered Dose 10 unit .ROUTE .STK-MED ONE Stop: 04/13/21 09:53 Oxytocin (Oxytocin 10 Units/1 Ml Sdv) Confirm Administered Dose 10 unit .ROUTE .STK-MED ONE Stop: 04/13/21 11:25 Propofol (Propofol 200 Mg/20 Ml Sdv) Confirm Administered Dose 200 mg .ROUTE .STK-MED ONE Stop: 04/13/21 10:47 Sodium Chloride (Sodium Chloride 0.9% 10 Ml Syringe) 10 ml FLUSH ASDIRECTED PRN PRN Reason: Keep Vein Open - Infant Interaction Infant Disposition, : in Room with Family Interaction: Holding Infant Infant Feeding: Breastfed ; Nursed Well Support Person: - Recovery Exam Fundal Tone: Firm Fundal Level: 1 Fingerbreadths Below Umbilicus Fundal Placement: Midline Lochia Amount: Scant, Small Lochia Color: Rubra/Red Perineum Description: Intact, Minimal Bruising/Swelling Episiotomy/Laceration: None Bladder Status: Indwelling Catheter in Place Urinary Elimination: Indwelling Catheter - Exam General: Alert, Oriented, Cooperative Lungs: Clear to Auscultation, Normal Respiratory Effort Cardiovascular: Regular Rate, Regular Rhythm GI/Abdominal Exam: Soft, Non-Tender Extremities: Pedal Edema (left side ), Leg Pain (left side ) Skin: Warm, Dry, Intact Wound/Incisions: Healing Well, No Drainage - Problem List & Annotations (1) 38 weeks gestation of SNOMED Code(s): 78845500 Code(s): Z3A.38 - 38 WEEKS GESTATION OF Status: Acute Current Visit: Yes (2) History of delivery SNOMED Code(s): 856536404 Code(s): Z98.891 - HISTORY OF UTERINE SCAR FROM PREVIOUS SURGERY Status: Acute Current Visit: Yes (3) Edema leg SNOMED Code(s): 136543445 Code(s): R60.0 - LOCALIZED EDEMA Status: Acute Current Visit: Yes (4) Decreased movement SNOMED Code(s): 310092977 Code(s): O36.8190 - DECREASED MOVEMENTS, UNSP TRIMESTER, UNSP Status: Acute Current Visit: Yes Qualifiers: Fetus number: single or unspecified fetus Trimester: third trimester Qualified Code(s): O36.8130 - Decreased movements, third trimester, not applicable or unspecified (5) Gestational diabetes SNOMED Code(s): 51177476 Code(s): O24.419 - GESTATIONAL DIABETES MELLITUS IN , UNSP CONTROL Status: Acute Current Visit: Yes Qualifiers: Gestational diabetes mellitus control: insulin-controlled Trimester: third trimester Qualified Code(s): O24.414 - Gestational diabetes mellitus in , insulin controlled (6) S/P repeat low transverse SNOMED Code(s): 893182046, 95539641, 882032384, 510859811, 551621200 Code(s): Z98.891 - HISTORY OF UTERINE SCAR FROM PREVIOUS SURGERY Status: Acute Current Visit: Yes - Problem List Review Problem List Initiated/Reviewed/Updated: Yes - My Orders Last 24 Hours: My Active Orders 04/13/21 09:00 Resuscitation Status Routine 04/13/21 Lunch Regular Diet [DIET] 04/13/21 13:12 Acetaminophen/oxyCODONE [Percocet 325-5 MG] 1 tab PO Q4H PRN Acetaminophen/oxyCODONE [Percocet 325-5 MG] 2 tab PO Q4H PRN Docusate Sodium [Colace] 100 mg PO Q12H PRN Naloxone [Narcan] 0.1 mg IVPUSH SEECOMMENT PRN diphenhydrAMINE [Benadryl] 25 mg IVPUSH Q6H PRN ePHEDrine [ePHEDrine sulfate] 5 mg IVPUSH SEECOMMENT PRN 04/13/21 13:12 Activity as Tolerated [RC] .Routine Antiembolic Devices [RC] PER UNIT ROUTINE Communication Order [RC] PER UNIT ROUTINE May Shower [RC] PER UNIT ROUTINE Notify Provider Intake and Out [RC] ASDIRECTED RT Incentive Spirometry [RC] Q2HWA Assess Lochia [WOMSER] Per Unit Routine Assess Uterine Involution [WOMSER] Per Unit Routine Breast Pump [WOMSER] Per Unit Routine Peripheral IV Discontinue [OM.PC] Routine Sequential Compression Device [OM.PC] Per Unit Routine 04/14/21 05:00 Blood Glucose Check, Bedside [RC] ONETIME 04/14/21 11:57 Urinary Catheter Removal [RC] Per Unit Routine 04/14/21 12:00 Ibuprofen [Motrin] 600 mg PO Q6H PRN - Assessment Assessment:: PPD#1 - Plan Plan:: * Routine cares * Breast feeding * Duplex repeated last night and still without findings of DVT. Clinically leg appears improved. Continue to monitor for now * Fasting blood sugar done this am and appropriate * Discharge home in 1-2 days .
--- NOTE | 2021-04-14 08:18 | PCM48HPAN ---
Post Anesthesia Note - EVALUATION WITHIN 48HRS OF ANESTHETIC Vital Signs in Normal Range: Yes Patient Participated in Evaluation: Yes Respiratory Function Stable: Yes Airway Patent: Yes Cardiovascular Function Stable: Yes Hydration Status Stable: Yes Pain Control Satisfactory: Yes Nausea and Vomiting Control Satisfactory: Yes Mental Status Recovered: Yes Vital Signs: Last Vital Signs Temp 36.8 C 04/13/21 13:07 Pulse 85 04/14/21 04:56 Resp 14 04/13/21 13:07 BP 101/71 04/14/21 04:56 Pulse Ox 96 04/14/21 04:56
[2021-04-14] MEDS: Docusate Sodium 100 MG Cap PO PRN ×2 (10:27→22:26)
[2021-04-14] MEDS: Simethicone 80 MG Tab.Chew PO SCH ×2 (16:39→21:02)
[2021-04-14] MEDS: Ibuprofen 600 MG Tab PO PRN (22:26)
[2021-04-15] MEDS: Acetaminophen/oxyCODONE 325-5 MG Tab PO PRN (03:43)
--- NOTE | 2021-04-15 07:07 | PCM.PNPP ---
- General Info Date of Service: 04/15/21 Functional Status: Reports: Pain Controlled, Tolerating Diet, Ambulating, Urinating - Review of Systems General: Reports: No Symptoms Pulmonary: Reports: No Symptoms Cardiovascular: Reports: No Symptoms Gastrointestinal: Reports: Abdominal Pain (managed) Musculoskeletal: Reports: Leg Pain (almost resolved ) - Patient Data Vital Signs - Most Recent: Last Vital Signs Temp 37.1 C 04/15/21 03:41 Pulse 93 04/15/21 03:41 Resp 14 04/15/21 03:41 BP 108/64 04/15/21 03:41 Pulse Ox 95 04/15/21 03:41 Weight - Most Recent: 103.419 kg I&O - Last 24 Hours: Intake & Output 04/14/21 04/15/21 04/15/21 22:59 06:59 14:59 Intake Total 320 Output Total 1450 600 Balance -1130 -600 Med Orders - Current: Current Medications Diphenhydramine HCl (Diphenhydramine 50 Mg/Ml Sdv) 25 mg IVPUSH Q6H PRN PRN Reason: Pruritis Diphenhydramine HCl (Diphenhydramine 50 Mg/Ml Sdv) 25 mg IVPUSH Q6H PRN PRN Reason: Itching or Nausea Docusate Sodium (Docusate Sodium 100 Mg Cap) 100 mg PO Q12H PRN PRN Reason: Constipation Last Admin: 04/14/21 22:26 Dose: 100 mg Documented by: Ephedrine Sulfate (Ephedrine 50 Mg/Ml Sdv) 5 mg IVPUSH SEECOMMENT PRN PRN Reason: Other Fentanyl (Fentanyl 100 Mcg/2 Ml Sdv) 50 mcg IVPUSH Q5M PRN PRN Reason: Pain Last Admin: 04/13/21 12:42 Dose: 50 mcg Documented by: Ibuprofen (Ibuprofen 600 Mg Tab) 600 mg PO Q6H PRN PRN Reason: mild pain or fever Last Admin: 04/14/21 22:26 Dose: 600 mg Documented by: Meperidine HCl (Meperidine 50 Mg/Ml Vial) 25 mg IVPUSH ONETIME PRN PRN Reason: Shivering Naloxone HCl (Naloxone 0.4 Mg/Ml Sdv) 0.1 mg IVPUSH SEECOMMENT PRN PRN Reason: Respiratory Depression Ondansetron HCl (Ondansetron 4 Mg/2 Ml Sdv) 4 mg IVPUSH ONETIME PRN PRN Reason: Nausea/Vomiting Oxycodone/Acetaminophen (Acetaminophen/Oxycodone 325-5 Mg Tab) 1 tab PO Q4H PRN PRN Reason: Pain (moderate 4-6) Oxycodone/Acetaminophen (Acetaminophen/Oxycodone 325-5 Mg Tab) 2 tab PO Q4H PRN PRN Reason: Pain (severe 7-10) Last Admin: 04/15/21 03:43 Dose: 2 tab Documented by: Simethicone (Simethicone 80 Mg Tab.Chew) 80 mg PO QIDACANDBED [facility] Last Admin: 04/14/21 21:02 Dose: 80 mg Documented by: Discontinued Medications Carboprost Tromethamine (Carboprost Tromethamine 250 Mcg/1 Ml Amp) Confirm Administered Dose 250 mcg .ROUTE .STK-MED ONE Stop: 04/13/21 11:21 Cefazolin Sodium (Cefazolin 1 Gm Vial) Confirm Administered Dose 2 gm .ROUTE .STK-MED ONE Stop: 04/13/21 09:53 Citric Acid/Sodium Citrate (Citric Acid/Sodium Citrate Solution 30 Ml Cup) 30 ml PO ONETIME ONE Stop: 04/13/21 09:46 Last Admin: 04/13/21 09:59 Dose: 30 ml Documented by: Fentanyl (Fentanyl 250 Mcg/5 Ml Sdv) Confirm Administered Dose 250 mcg .ROUTE .STK-MED ONE Stop: 04/13/21 11:16 Fentanyl (Fentanyl 100 Mcg/2 Ml Sdv) Confirm Administered Dose 100 mcg .ROUTE .STK-MED ONE Stop: 04/13/21 11:38 Hydromorphone HCl (Hydromorphone 0.5 Mg/0.5 Ml Syringe) Confirm Administered Dose 0.5 mg .ROUTE .STK-MED ONE Stop: 04/13/21 11:33 Lactated Ringer's (Ringers, Lactated) 1,000 mls @ 125 mls/hr IV ASDIRECTED [facility] Last Admin: 04/13/21 10:45 Dose: 999 mls/hr Documented by: Cefazolin Sodium/Dextrose 2 gm (/ Premix) 50 mls @ 100 mls/hr IV ONETIME ONE Stop: 04/13/21 10:14 Last Admin: 04/13/21 15:59 Dose: Not Given Documented by: Oxytocin/Lactated Ringer's (Pitocin In Lr 10 Units/1,000 Ml) 10 unit in 1,000 mls @ 100 mls/hr IV ASDIRECTED [facility]; Protocol Dextrose/Lactated Ringer's (Dextrose 5%-Lactated Ringers) 1,000 mls @ 125 mls/hr IV ASDIRECTED [facility] Stop: 04/13/21 21:11 Last Admin: 04/13/21 13:37 Dose: 125 mls/hr Documented by: Lactated Ringer's (Ringers, Lactated) Confirm Administered Dose 1,000 mls @ as directed .ROUTE .STK-MED ONE Stop: 04/13/21 13:16 Lactated Ringer's (Ringers, Lactated) 500 mls @ 999 mls/hr IV .BOLUS ONE Stop: 04/13/21 22:06 Last Admin: 04/14/21 06:17 Dose: 999 mls/hr Documented by: Lactated Ringer's (Ringers, Lactated) 500 mls @ 999 mls/hr IV .BOLUS ONE Stop: 04/14/21 06:40 Last Admin: 04/15/21 00:46 Dose: Not Given Documented by: Ketorolac Tromethamine (Ketorolac 30 Mg/Ml Sdv) Confirm Administered Dose 30 mg .ROUTE .STK-MED ONE Stop: 04/13/21 09:53 Ketorolac Tromethamine (Ketorolac 30 Mg/Ml Sdv) 30 mg IVPUSH Q6H [facility] Stop: 04/14/21 06:01 Last Admin: 04/14/21 08:17 Dose: 30 mg Documented by: Methylergonovine Maleate (Methylergonovine 0.2 Mg/1 Ml Amp) Confirm Administered Dose 0.2 mg .ROUTE .STK-MED ONE Stop: 04/13/21 11:19 Metoclopramide HCl (Metoclopramide 10 Mg/2 Ml Sdv) 10 mg IVPUSH ONETIME ONE Stop: 04/13/21 09:46 Last Admin: 04/13/21 09:59 Dose: 10 mg Documented by: Morphine Sulfate (Morphine Pf 10 Mg/10 Ml Sdv) Confirm Administered Dose 0 mg .ROUTE .STK-MED ONE Stop: 04/13/21 09:54 Ondansetron HCl (Ondansetron 4 Mg/2 Ml Sdv) Confirm Administered Dose 4 mg .ROUTE .STK-MED ONE Stop: 04/13/21 09:53 Oxytocin (Oxytocin 10 Units/1 Ml Sdv) Confirm Administered Dose 10 unit .ROUTE .STK-MED ONE Stop: 04/13/21 09:53 Oxytocin (Oxytocin 10 Units/1 Ml Sdv) Confirm Administered Dose 10 unit .ROUTE .STK-MED ONE Stop: 04/13/21 11:25 Propofol (Propofol 200 Mg/20 Ml Sdv) Confirm Administered Dose 200 mg .ROUTE .STK-MED ONE Stop: 04/13/21 10:47 Sodium Chloride (Sodium Chloride 0.9% 10 Ml Syringe) 10 ml FLUSH ASDIRECTED PRN PRN Reason: Keep Vein Open - Infant Interaction Disposition, : in Room with Family Infant Interaction: Holding Feeding: Breastfed Infant; Nursed Well Support Person: - Recovery Exam Fundal Tone: Firm Fundal Level: At Umbilicus Fundal Placement: Midline Lochia Amount: Scant, Small Lochia Color: Rubra/Red Perineum Description: Intact, Minimal Bruising/Swelling Episiotomy/Laceration: None Bladder Status: Voiding Urinary Elimination: Voided - Exam General: Alert, Oriented, Cooperative Lungs: Clear to Auscultation, Normal Respiratory Effort Cardiovascular: Regular Rate, Regular Rhythm GI/Abdominal Exam: Soft, Tender (appropriate ) Extremities: Other (edema in left upper thigh significantly better, no erythema or warmth ) Wound/Incisions: Healing Well, No Drainage - Problem List & Annotations (1) 38 weeks gestation of SNOMED Code(s): 29187526 Code(s): Z3A.38 - 38 WEEKS GESTATION OF Status: Acute Current Visit: Yes (2) History of delivery SNOMED Code(s): 546768488 Code(s): Z98.891 - HISTORY OF UTERINE SCAR FROM PREVIOUS SURGERY Status: Acute Current Visit: Yes (3) Edema leg SNOMED Code(s): 321761466 Code(s): R60.0 - LOCALIZED EDEMA Status: Acute Current Visit: Yes (4) Decreased movement SNOMED Code(s): 839112514 Code(s): O36.8190 - DECREASED MOVEMENTS, UNSP TRIMESTER, UNSP Status: Acute Current Visit: Yes Qualifiers: Fetus number: single or unspecified fetus Trimester: third trimester Qualified Code(s): O36.8130 - Decreased movements, third trimester, not applicable or unspecified (5) Gestational diabetes SNOMED Code(s): 84812528 Code(s): O24.419 - GESTATIONAL DIABETES MELLITUS IN , UNSP CONTROL Status: Acute Current Visit: Yes Qualifiers: Gestational diabetes mellitus control: insulin-controlled Trimester: third trimester Qualified Code(s): O24.414 - Gestational diabetes mellitus in , insulin controlled (6) S/P repeat low transverse SNOMED Code(s): 546452854, 61111066, 078837127, 308474218, 928823818 Code(s): Z98.891 - HISTORY OF UTERINE SCAR FROM PREVIOUS SURGERY Status: Acute Current Visit: Yes - Problem List Review Problem List Initiated/Reviewed/Updated: Yes - My Orders Last 24 Hours: My Active Orders 04/14/21 11:57 Urinary Catheter Removal [RC] Per Unit Routine 04/14/21 12:00 Ibuprofen [Motrin] 600 mg PO Q6H PRN 04/14/21 17:00 Simethicone 80 mg PO QIDACANDBED - Assessment Assessment:: PPD#2 - Plan Plan:: * Routine cares * Breast feeding * Discharge today .
[2021-04-15] MEDS: Simethicone 80 MG Tab.Chew PO SCH ×2 (09:02→12:28)
[2021-04-15] MEDS: Ibuprofen 600 MG Tab PO PRN (09:02)
[2021-04-15] MEDS: Docusate Sodium 100 MG Cap PO PRN (09:02)
--- NOTE | 2021-04-15 11:27 | PCM.DCSUM1 ---
Discharge Summary - Discharge Data Discharge Date: 04/15/21 Discharge Disposition: Home, Self-Care 01 Condition: Good - Referral to Home Health Primary Care Physician: Hillary Flynn MD - Discharge Diagnosis/Problem(s) (1) 38 weeks gestation of SNOMED Code(s): 53660061 ICD Code: Z3A.38 - 38 WEEKS GESTATION OF Status: Acute Current Visit: Yes (2) History of delivery SNOMED Code(s): 942629738 ICD Code: Z98.891 - HISTORY OF UTERINE SCAR FROM PREVIOUS SURGERY Status: Acute Current Visit: Yes (3) Edema leg SNOMED Code(s): 734101447 ICD Code: R60.0 - LOCALIZED EDEMA Status: Acute Current Visit: Yes (4) Decreased movement SNOMED Code(s): 990194047 ICD Code: O36.8190 - DECREASED MOVEMENTS, UNSP TRIMESTER, UNSP Status : Acute Current Visit: Yes Qualifiers: Fetus number: single or unspecified fetus Trimester: third trimester Qualified Code(s): O36.8130 - Decreased movements, third trimester, not applicable or unspecified (5) Gestational diabetes SNOMED Code(s): 29183536 ICD Code: O24.419 - GESTATIONAL DIABETES MELLITUS IN , UNSP CONTROL Status: Acute Current Visit: Yes Qualifiers: Gestational diabetes mellitus control: insulin-controlled Trimester: third trimester Qualified Code(s): O24.414 - Gestational diabetes mellitus in , insulin controlled (6) S/P repeat low transverse SNOMED Code(s): 013322993, 21679895, [id number], 571502980, 940430568 ICD Code: Z98.891 - HISTORY OF UTERINE SCAR FROM PREVIOUS SURGERY Status: Acute Current Visit: Yes - Patient Summary/Data Operative Procedure(s) Performed: Repeat Complications: None Consults: None Recommended Follow-up Testing/Procedures: Follow up in 3 weeks for post op check Hospital Course: 36 y/o at 38 3/7 wks who had persistent concerns fo decreased 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 Surgery uncomplicated. See operative note. During last 2 weeks of had worsening, unilateral edema of left thigh. Two negative duplex studies performed. Was treated by on- call physician for concerns of possible cellulitis. After delivery duplex again repeated and still WNL. Edema, erythema, tenderness all significantly improved after delivery. Presumed from pressure of uterus/ although prior to delivery was more asymmetric than anticipated. Will follow up . - Patient Instructions Diet: Regular Diet as Tolerated Activity: No Lifting Over 10 Pounds Activity, Other: Pelvic rest for 6 weeks Driving: Do Not Drive (While taking pain medications ) Showering/Bathing: May Shower, No Tub Bathing/Swimming Wound/Incision Care: Keep Operative Site/Wound Site Clean and Dry Notify Provider of: Fever, Increased Pain, Swelling and Redness, Drainage, Nausea and/or Vomiting - Discharge Plan *PRESCRIPTION DRUG MONITORING PROGRAM REVIEWED*: No *COPY OF PRESCRIPTION DRUG MONITORING REPORT IN PATIENT MONI: No Prescriptions/Med Rec: Acetaminophen/oxyCODONE [Percocet 325-5 MG] 1 - 2 tab PO Q4H PRN #25 tablet PRN Reason: Pain (Severe 7-10) Home Medications: Home Meds No122/Iron/Folic Acid [ Multi Tablet] 1 tab PO DAILY 01/23/21 [History] Acetaminophen/oxyCODONE [Percocet 325-5 MG] 1 - 2 tab PO Q4H PRN #25 tablet 04/15/21 [Rx] Docusate Sodium [Colace] 100 mg PO Q12H PRN cap 04/15/21 [Rx] Ibuprofen [Motrin] 600 mg PO Q6H PRN tablet 04/15/21 [Rx] Patient Handouts: Care After Delivery, Tips for a Good Latch, [id number] Referrals: Hillary Flynn MD [Primary Care Provider] - (3 weeks for check ) - Discharge Summary/Plan Comment DC Time >30 min.: No - Patient Data Vitals - Most Recent: Last Vital Signs Temp 36.6 C 04/15/21 08:50 Pulse 80 04/15/21 08:50 Resp 14 04/15/21 08:50 BP 109/68 04/15/21 08:50 Pulse Ox 97 04/15/21 08:50 Weight - Most Recent: 103.419 kg I&O - Last 24 hours: Intake & Output 04/14/21 04/15/21 04/15/21 22:59 06:59 14:59 Intake Total 320 Output Total 1450 600 Balance -1130 -600 Med Orders - Current: Current Medications Diphenhydramine HCl (Diphenhydramine 50 Mg/Ml Sdv) 25 mg IVPUSH Q6H PRN PRN Reason: Pruritis Diphenhydramine HCl (Diphenhydramine 50 Mg/Ml Sdv) 25 mg IVPUSH Q6H PRN PRN Reason: Itching or Nausea Docusate Sodium (Docusate Sodium 100 Mg Cap) 100 mg PO Q12H PRN PRN Reason: Constipation Last Admin: 04/15/21 09:02 Dose: 100 mg Documented by: Ephedrine Sulfate (Ephedrine 50 Mg/Ml Sdv) 5 mg IVPUSH SEECOMMENT PRN PRN Reason: Other Fentanyl (Fentanyl 100 Mcg/2 Ml Sdv) 50 mcg IVPUSH Q5M PRN PRN Reason: Pain Last Admin: 04/13/21 12:42 Dose: 50 mcg Documented by: Ibuprofen (Ibuprofen 600 Mg Tab) 600 mg PO Q6H PRN PRN Reason: mild pain or fever Last Admin: 04/15/21 09:02 Dose: 600 mg Documented by: Meperidine HCl (Meperidine 50 Mg/Ml Vial) 25 mg IVPUSH ONETIME PRN PRN Reason: Shivering Naloxone HCl (Naloxone 0.4 Mg/Ml Sdv) 0.1 mg IVPUSH SEECOMMENT PRN PRN Reason: Respiratory Depression Ondansetron HCl (Ondansetron 4 Mg/2 Ml Sdv) 4 mg IVPUSH ONETIME PRN PRN Reason: Nausea/Vomiting Oxycodone/Acetaminophen (Acetaminophen/Oxycodone 325-5 Mg Tab) 1 tab PO Q4H PRN PRN Reason: Pain (moderate 4-6) Oxycodone/Acetaminophen (Acetaminophen/Oxycodone 325-5 Mg Tab) 2 tab PO Q4H PRN PRN Reason: Pain (severe 7-10) Last Admin: 04/15/21 03:43 Dose: 2 tab Documented by: Simethicone (Simethicone 80 Mg Tab.Chew) 80 mg PO QIDACANDBED EDUARDO Last Admin: 04/15/21 09:02 Dose: 80 mg Documented by: Discontinued Medications Carboprost Tromethamine (Carboprost Tromethamine 250 Mcg/1 Ml Amp) Confirm Administered Dose 250 mcg .ROUTE .STK-MED ONE Stop: 04/13/21 11:21 Cefazolin Sodium (Cefazolin 1 Gm Vial) Confirm Administered Dose 2 gm .ROUTE .STK-MED ONE Stop: 04/13/21 09:53 Citric Acid/Sodium Citrate (Citric Acid/Sodium Citrate Solution 30 Ml Cup) 30 ml PO ONETIME ONE Stop: 04/13/21 09:46 Last Admin: 04/13/21 09:59 Dose: 30 ml Documented by: Fentanyl (Fentanyl 250 Mcg/5 Ml Sdv) Confirm Administered Dose 250 mcg .ROUTE .STK-MED ONE Stop: 04/13/21 11:16 Fentanyl (Fentanyl 100 Mcg/2 Ml Sdv) Confirm Administered Dose 100 mcg .ROUTE .STK-MED ONE Stop: 04/13/21 11:38 Hydromorphone HCl (Hydromorphone 0.5 Mg/0.5 Ml Syringe) Confirm Administered Dose 0.5 mg .ROUTE .STK-MED ONE Stop: 04/13/21 11:33 Lactated Ringer's (Ringers, Lactated) 1,000 mls @ 125 mls/hr IV ASDIRECTED [facility] Last Admin: 04/13/21 10:45 Dose: 999 mls/hr Documented by: Cefazolin Sodium/Dextrose 2 gm (/ Premix) 50 mls @ 100 mls/hr IV ONETIME ONE Stop: 04/13/21 10:14 Last Admin: 04/13/21 15:59 Dose: Not Given Documented by: Oxytocin/Lactated Ringer's (Pitocin In Lr 10 Units/1,000 Ml) 10 unit in 1,000 mls @ 100 mls/hr IV ASDIRECTED [facility]; Protocol Dextrose/Lactated Ringer's (Dextrose 5%-Lactated Ringers) 1,000 mls @ 125 mls/hr IV ASDIRECTED EDUARDO Stop: 04/13/21 21:11 Last Admin: 04/13/21 13:37 Dose: 125 mls/hr Documented by: Lactated Ringer's (Ringers, Lactated) Confirm Administered Dose 1,000 mls @ as directed .ROUTE .STK-MED ONE Stop: 04/13/21 13:16 Lactated Ringer's (Ringers, Lactated) 500 mls @ 999 mls/hr IV .BOLUS ONE Stop: 04/13/21 22:06 Last Admin: 04/14/21 06:17 Dose: 999 mls/hr Documented by: Lactated Ringer's (Ringers, Lactated) 500 mls @ 999 mls/hr IV .BOLUS ONE Stop: 04/14/21 06:40 Last Admin: 04/15/21 00:46 Dose: Not Given Documented by: Ketorolac Tromethamine (Ketorolac 30 Mg/Ml Sdv) Confirm Administered Dose 30 mg .ROUTE .STK-MED ONE Stop: 04/13/21 09:53 Ketorolac Tromethamine (Ketorolac 30 Mg/Ml Sdv) 30 mg IVPUSH Q6H EDUARDO Stop: 04/14/21 06:01 Last Admin: 04/14/21 08:17 Dose: 30 mg Documented by: Methylergonovine Maleate (Methylergonovine 0.2 Mg/1 Ml Amp) Confirm Administered Dose 0.2 mg .ROUTE .STK-MED ONE Stop: 04/13/21 11:19 Metoclopramide HCl (Metoclopramide 10 Mg/2 Ml Sdv) 10 mg IVPUSH ONETIME ONE Stop: 04/13/21 09:46 Last Admin: 04/13/21 09:59 Dose: 10 mg Documented by: Morphine Sulfate (Morphine Pf 10 Mg/10 Ml Sdv) Confirm Administered Dose 0 mg .ROUTE .STK-MED ONE Stop: 04/13/21 09:54 Ondansetron HCl (Ondansetron 4 Mg/2 Ml Sdv) Confirm Administered Dose 4 mg .ROUTE .STK-MED ONE Stop: 04/13/21 09:53 Oxytocin (Oxytocin 10 Units/1 Ml Sdv) Confirm Administered Dose 10 unit .ROUTE .STK-MED ONE Stop: 04/13/21 09:53 Oxytocin (Oxytocin 10 Units/1 Ml Sdv) Confirm Administered Dose 10 unit .ROUTE .STK-MED ONE Stop: 04/13/21 11:25 Propofol (Propofol 200 Mg/20 Ml Sdv) Confirm Administered Dose 200 mg .ROUTE .STK-MED ONE Stop: 04/13/21 10:47 Sodium Chloride (Sodium Chloride 0.9% 10 Ml Syringe) 10 ml FLUSH ASDIRECTED PRN PRN Reason: Keep Vein Open
== END 2021-04-15 12:10 | disposition home or self-care (01) | DRG 787 ==
LOC: JD.OBCHECK 08:50 → JD.OB 08:50 → JD.OBCHECK 10:10 → JD.OB 10:16
PROVIDERS: ADMIT Obstetrics & Gynecology; ATTEND Obstetrics & Gynecology
PROC: 10D00Z1 Extraction of Products of Conception, Low, Open Approach (ICD-10-PCS; principal; 2021-04-13)
DX: O36.8130 Decreased fetal movements, third trimester, not applicable or unspecified (principal); L03.116 Cellulitis of left lower limb; Z37.0 Single live birth; O24.424 Gestational diabetes mellitus in childbirth, insulin controlled; O34.211 Maternal care for low transverse scar from previous cesarean delivery; O99.72 Diseases of the skin and subcutaneous tissue complicating childbirth; O99.344 Other mental disorders complicating childbirth; Z20.822 Contact with and (suspected) exposure to COVID-19; F41.9 Anxiety disorder, unspecified; F32.9 Major depressive disorder, single episode, unspecified; Z88.2 Allergy status to sulfonamides; Z79.82 Long term (current) use of aspirin; Z98.890 Other specified postprocedural states; Z3A.38 38 weeks gestation of pregnancy; Z79.899 Other long term (current) drug therapy
CPT/HCPCS: 01961; 36415; 59025; 80048; 82947; 85025; 85027; 86592; 86850; 86900; 86901; 93971-26-LT; 93971-LT; 94762; A9270-GY; J0330; J0690; J1170; J1885; J2210; J2270; J2405; J2590; J2704; J2765; J3010; J7120; J7121; U0002

== ENCOUNTER 2024-02-26 01:10 | Emergency (ER) | payer OTHER ==
[2024-02-26 02:09] LABS: APPEARANCE,URINE CLEAR (Clear); BILIRUBIN,URINE 2+ (Negative); COLOR,URINE ORANGE (Yellow); GLUCOSE,URINE 1+ (Negative); KETONES,URINE 1+ (Negative); LEUKOCYTE ESTERASE,URINE 3+ (Negative); NITRITE,URINE POSITIVE (Negative); OCCULT BLOOD,URINE 3+ (Negative); PROTEIN,URINE 3+ (Negative); UROBILINOGEN,URINE >=8.0 (0.2-1.0)
[2024-02-26 02:17] LABS: EPITHELIAL CELLS,URINE 0-5 /hpf (0-5); RBC,URINE 50-75 /hpf (0-5); WBC CLUMPS,URINE FEW /hpf (NOT SEEN); WBC,URINE 20-30 /hpf (0-5)
[2024-02-26 02:18] LABS: BACTERIA,URINE MODERATE /hpf (FEW); MUCUS,URINE NOT SEEN /hpf (FEW)
[2024-02-26] MEDS: Doxycycline Monohydrate 100 MG Cap PO ONE (02:35)
== END 2024-02-26 02:37 | disposition home or self-care (01) ==
LOC: JD.ED 01:10
DX: N39.0 Urinary tract infection, site not specified (principal); Z88.2 Allergy status to sulfonamides; K21.9 Gastro-esophageal reflux disease without esophagitis; Z79.899 Other long term (current) drug therapy; Z86.16 Personal history of COVID-19
CPT/HCPCS: 81001; 81025; 87086; 87088; 87186; 99283; A9270-GY

== ENCOUNTER 2024-12-09 07:36 | Day surgery (SDC) | payer OTHER ==
[~2024-12-09 07:36] MED LIST: Dexamethasone 4 MG/ML 5 ML MDV ONE; Ketorolac 30 MG/ML SDV ONE; Lidocaine 1% 5 ML VIAL ONE; Midazolam 1 MG/ML 2 ML SDV ONE; Ondansetron 4 MG/2 ML SDV ONE; Propofol 200 MG/20 ML SDV ONE; Rocuronium 50 MG/5 ML Vial ONE; Sodium Chloride 0.9% 10 ML Syringe FLUSH PRN; Sodium Chloride 0.9% 10 ML Syringe FLUSH SCH; Sodium Chloride 0.9% 100 ML ONE; ceFAZolin 2 GM Vial ONE; dexmedeTOMIDine HCl 200 MCG/2 ML SDV ONE; fentaNYL 250 MCG/5 ML SDV ONE; propofoL 500 MG/50 ML 50 ML ONE
[2024-12-09] MEDS ORDERED: Sugammadex Sodium 200 MG/2 ML VIAL IV ONE (07:44)
[2024-12-09] MEDS ORDERED: HYDROmorphone 0.5 MG/0.5 ML Syringe IVPUSH PRN (08:03)
[2024-12-09] MEDS ORDERED: fentaNYL 100 MCG/2 ML SDV IVPUSH PRN (08:03)
[2024-12-09] MEDS ORDERED: Ondansetron 4 MG/2 ML SDV IVPUSH PRN (08:03)
[2024-12-09] MEDS: Lactated Ringers 1,000 ML IV SCH (08:10)
[2024-12-09 08:39] LABS: HEMATOCRIT 38.6 % (37.0-47.0); HEMOGLOBIN 13.3 gm/dl (12.0-16.0); MEAN CORPUSCULAR HEMOGLOBIN 30.6 pg (28.0-32.0); MEAN CORPUSCULAR HGB CONC 34.5 g/dl (32.0-36.0); MEAN PLATELET VOLUME 10.5 fl (9.4-12.3); PLATELET COUNT,PLT 315 K/mm3 (150-400); RED BLOOD CELL COUNT 4.34 M/mm3 (4.10-5.30); WHITE BLOOD CELL COUNT,WBC 6.47 K/mm3 (3.9-11.3)
[2024-12-09 08:42] LABS: MEAN CORPUSCULAR VOLUME 88.9 fl (83.0-99.0)
[2024-12-09 08:52] LABS: ANION GAP 10.6 (5-15); BUN/CREATININE RATIO 12.5 (14-18); CALCIUM 8.5 mg/dL (8.5-10.1); CREATININE 0.8 mg/dL (0.55-1.02); EST CRCL DRUG DOSING (CG) 88.38 mL/min; POTASSIUM,K 3.6 mEq/L (3.5-5.1)
[2024-12-09] MEDS: Bupivacaine 0.5% 30 ML SDV ONE (08:58)
[2024-12-09] MEDS ORDERED: propofoL 500 MG/50 ML 50 ML ONE ×2 (09:00→09:44)
[2024-12-09] MEDS ORDERED: Esmolol 100 MG/10 ML SDV ONE (09:13)
[2024-12-09] MEDS: EPINEPHrine 1 MG/ML SDV ONE (09:19)
[2024-12-09] MEDS: Bupivacaine 0.25% 10 ML SDV ONE (09:19)
[2024-12-09] MEDS ORDERED: Lactated Ringers 1,000 ML ONE (10:28)
[2024-12-09] MEDS ORDERED: oxyCODONE 5 MG Tab PO PRN (10:41)
== END 2024-12-09 12:17 | disposition home or self-care (01) ==
LOC: JD.SDS 07:36
PROVIDERS: ATTEND Obstetrics & Gynecology
DX: N85.8 Other specified noninflammatory disorders of uterus (principal); N72 Inflammatory disease of cervix uteri; L72.0 Epidermal cyst; N83.8 Other noninflammatory disorders of ovary, fallopian tube and broad ligament; E11.9 Type 2 diabetes mellitus without complications; E66.9 Obesity, unspecified; Z68.30 Body mass index [BMI] 30.0-30.9, adult; Z88.2 Allergy status to sulfonamides; Z79.82 Long term (current) use of aspirin; Z79.899 Other long term (current) drug therapy
CPT/HCPCS: 36415; 58552; 80048; 81025; 85027; 86850; 86900; 86901; J0171; J0665; J0690; J1100; J1596; J1805; J1885; J2003; J2250; J2405; J2704; J3010; J7120; 00944; J3490